=== PATIENT | female | born 2000 | race Two or more races ===

== ENCOUNTER → 2024-04-19 | Emergency (ER) | payer MEDICAID ==
[~2024-04-19] VITALS: Ht 162.6 cm; Wt 72.2 kg
[~2024-04-19] MED LIST: DIPH25CA85 PO; PRED-554 PO
[2024-04-19 09:50] VITALS: TEMP 97.1
[2024-04-19] MEDS: PredniSONE 20 MG TABLET PO ONE (10:09)
[2024-04-19] MEDS: DiphenhydrAMINE HCL 25 MG CAPSULE PO ONE (10:09)
[2024-04-19 13:25] VITALS: BP 114/66; PULSE 69; RESP 16; O2SAT 98
== END | disposition home or self-care (01) ==
LOC: EMS 09:40
DX: T78.40XA Allergy, unspecified, initial encounter (principal); X58.XXXA Exposure to other specified factors, initial encounter
CPT/HCPCS: 99283; 87430; J7512